=== PATIENT | female | born 1945 | race Caucasian/White ===

== ENCOUNTER → 2022-10-27 | Outpatient (CLI) | payer MEDICARE, OTHER ==
[~2022-10-27] MED LIST: CITRUS CALCIUM200 MG PO; MULTIPLE VITAMI1 CAP PO; ZOCOR 10MG10 MG PO
== END ==
LOC: COL.RAD 10-22 13:00
DX: K58.0 Irritable bowel syndrome with diarrhea (principal); D50.9 Iron deficiency anemia, unspecified; K80.00 Calculus of gallbladder with acute cholecystitis without obstruction; R91.1 Solitary pulmonary nodule
CPT/HCPCS: Q9967

== ENCOUNTER → 2022-11-10 | Outpatient (CLI) | payer MEDICARE, OTHER | LOC: COL.RAD 11-06 07:30 | DX: K80.20 Calculus of gallbladder without cholecystitis without obstruction (principal); R91.1 Solitary pulmonary nodule; R93.5 Abnormal findings on diagnostic imaging of other abdominal regions, including retroperitoneum | CPT/HCPCS: Q9967 ==